=== PATIENT | female | born 1940 | race Caucasian/White ===

== ENCOUNTER 2019-08-24 14:02 | Emergency (ER) | payer MEDICARE, BC, SELFPAY ==
[2019-08-24 14:11] VITALS: BP 128/63; PULSE 91; RESP 18; TEMP 37.4; O2SAT 94; BMI 29.6
--- NOTE | 2019-08-24 14:15 | XR_ITS ---
PROCEDURE: XR CHEST PORTABLE CLINICAL HISTORY: cough/respiratory symptoms COMPARISON: No exams were available for comparison FINDINGS: There is mild cardiomegaly without failure. Patchy density is present in the right upper and right lower lobe suggesting ground-glass infiltrates. Nodular opacity is noted in the left lower lobe and could be due to summation artifact or developing pulmonary nodule. Follow-up suggested when patient can tolerate. There are degenerative changes of the right shoulder IMPRESSION: Patchy ground-glass density in the right upper and right lower lobe which could be seen with viral pneumonia. Indeterminate nodular opacity left lower lobe Dictated by: Chago Granados MD 08/24/2019 15:17 Electronically signed by Chago Granados MD in [place] 08/24/2019 15:17
--- NOTE | 2019-08-24 14:18 | HMH.COUGH ---
Cough Clinic HPI - History of Present Illness Complaint:: cough HPI:: 78 year old female with one day of minimally productive cough and mylagias without fevers. Assoicated nasal congestion, rhinorrhea, watery/itchy eyes. Ears are also itching with popping sensation in ears. Home Medications: Home Medications Medication Instructions Recorded Confirmed Type Azithromycin [Z-Deangelo 250mg Tab] 250 mg PO DIRECTED #6 tab 08/24/19 Rx Fluticasone/Salmeterol [Advair 1 inh IH BID 08/24/19 08/24/19 History 250/50mcg Diskus] Isosorbide Mononitrate [Imdur 60mg 60 mg PO DAILY 08/24/19 08/24/19 History ER tablet] Losartan Potassium 50 mg PO DAILY 08/24/19 08/24/19 History Metoprolol Succinate [Metoprolol 100 mg PO DAILY 08/24/19 08/24/19 History Succinate 100mg Tablet*] Montelukast Sodium [Singulair 10mg 10 mg PO PM 08/24/19 08/24/19 History tablet] Simvastatin 40 mg PO DAILY 08/24/19 08/24/19 History Spironolactone [Spironolactone 25 mg PO DAILY 08/24/19 08/24/19 History 25mg Tablet] raNITIdine HCl [Zantac 150mg] 150 mg PO DAILY 08/24/19 08/24/19 History Allergies/Adverse Reactions: Allergies Allergy/AdvReac Type Severity Reaction Status Date / Time No Known Allergies Allergy Verified 08/24/19 14:24 Cough Clinic Triage - Symptoms Fever History: No Chills: Yes Myalgia: Yes Nasal Drainage: Yes Sore Throat: Yes Productive Cough: Yes Non-productive Cough: No Ear or Sinus Pain: No Joint Pain: Yes Chest Pain: No Rash: No Shortness of Breath: No Nausea or Vomitting: No Headache: Yes Abdominal Pain: No Diarrhea: No - Exposure History Foreign Travel: No Direct Contact with COVID-19 Patient: No - Risk Factors Greater than 60 Years Old: Yes COPD: No Diabetes: Yes Heart Disease: Yes Home Oxygen Use: No Chronic Renal Disease: No Chronic Liver Disease: No Neurologic/Neurodevelopmental/intellectual disability: No Other Chronic Diseases: No If Female, currently : No Current Smoker: No Former Smoker: Yes Cough Clinic History I have reviewed the patient's past medical history: Yes Medical History: Reports:: Asthma ROS Obtained: Yes All systems reviewed & no additional complaints Cough Clinic Exam - General General appearance: alert, in no apparent distress - Head Head exam: atraumatic, normocephalic, normal inspection - Eye Eye exam: Present: normal appearance, PERRL, EOMI - ENT ENT exam: Present: normal exam, normal oropharynx, mucous membranes moist, normal external ear exam, other (clear effusioin behind left ear) - Neck Neck exam: Present: normal inspection, full ROM, trachea midline. Absent: meningismus, lymphadenopathy - Chest Chest inspection: Present: normal inspection, symmetric chest wall rise. Absent: tenderness - Respiratory Respiratory exam: Present: normal lung sounds bilaterally. Absent: respiratory distress - Cardiovascular Cardiovascular exam: Present: regular rate, normal rhythm. Absent: JVD - Extremities Exam Extremities exam: Present: normal inspection, full ROM, normal capillary refill. Absent: calf tenderness - Neurological Exam Neurological exam: Present: alert, oriented X3 - Skin Skin exam: Present: warm, dry, intact, normal color - Lymphatic Lymphatic Findings: no adenopathy Cough Clinic MDM Vital Signs: 08/24/19 14:11 Temperature 99.3 F Temperature Source Oral Pulse Rate [Right Brachial] 91 H Respiratory Rate 18 Blood Pressure [Left Arm] 128/63 Blood Pressure Mean [Left Arm] 84 02 Sat by Pulse Oximetry 94 L Oxygen Delivery Method Room Air - Lab Data Lab Results 08/24/19 14:16: WBC 12.6 H, RBC 3.60 L, Hgb 12.1 L, Hct 35.0 L, MCV 97.1, MCH 33.7 H, MCHC 34.7, RDW 13.0, Plt Count 257, MPV 7.7, Neut % (Auto) 72.8, Lymph % (Auto) 17.2, Douglas % (Auto) 7.4, Eos % (Auto) 1.9, Baso % (Auto) 0.6, Neut # (Auto) 9.2 H, Lymph # (Auto) 2.2, Douglas # (Auto) 0.9, Eos # (Auto) 0.2, Baso # (Auto) 0.1 08/24/19 14:16: Influ
[2019-08-24 14:24] LABS: Hemoglobin 12.1 g/dL (12.2-16.2); Mean Corpuscular HGB Conc 34.7 g/dL (31.8-35.4); Mean Corpuscular Hemoglobin 33.7 pg (27.0-31.2); Mean Corpuscular Volume 97.1 fl (81-99); White Blood Count 12.6 K/mm3 (4.8-10.8)
[2019-08-24 14:25] LABS: Basophils # 0.1 K/mm3 (0-0.2); Basophils % 0.6 % (0.1-2.0); Eosinophils # 0.2 K/mm3 (0.0-0.4); Eosinophils % 1.9 % (0.1-12.0); Lymphocytes # 2.2 K/mm3 (0.7-4.5); Lymphocytes % 17.2 % (10-50); Mean Platelet Volume 7.7 fl (7.4-10.4); Monocytes # 0.9 K/mm3 (0.1-1.0); Monocytes % 7.4 % (1.7-9.3); Neutrophils # 9.2 K/mm3 (1.8-7.8); Neutrophils % 72.8 % (37.0-80.0); Platelet Count 257 K/mm3 (142-424)
[2019-08-24 14:27] LABS: Strep Scrn Group A (Rapid) Negative (Negative)
[2019-08-24 15:25] VITALS: BP 128/63; PULSE 91; RESP 18; TEMP 37.4; O2SAT 94
[2019-08-25 16:35] LABS: Covid-19 Nasal PCR Sendout Lex NOT DETECTED
--- NOTE | 2019-08-25 17:09 | PC.NURSE ---
1700 - notified of negative COVID 19 results.
--- NOTE | 2019-08-25 17:17 | PC.NURSE ---
notified pt of negative COVID 19 results at this time.
== END 2019-08-24 15:27 | disposition home or self-care (01) ==
PROVIDERS: Emergency Provider Family Medicine; PCP Emergency Medicine
DX: J18.9 Pneumonia, unspecified organism (principal); M79.10 Myalgia, unspecified site
CPT/HCPCS: G0463; 36415; 71045; 85025; 87275; 87276; 87430; 99201; 99213; U0003

== ENCOUNTER → 2019-09-04 11:16 | Outpatient (CLI) | payer MEDICARE, BC, SELFPAY ==
--- NOTE | 2019-09-04 11:26 | XR_ITS ---
PROCEDURE: XR CHEST 2V CLINICAL HISTORY: PNEUMONIA Follow-up pneumonia COMPARISON: XR CHEST PORTABLE from 08/24/2019 FINDINGS: Borderline cardiomegaly without failure. COPD. Old granulomatous disease. Previously noted patchy density in the right upper and right lower lobe has improved. Degenerative changes of the shoulders noted and of the lumbar spine IMPRESSION: No acute finding. COPD with improved right-sided pneumonia Dictated by: Chago Granados MD 09/04/2019 12:02 Electronically signed by Chago Granados MD in [place] 09/04/2019 12:02
== END ==
PROVIDERS: PCP Emergency Medicine; Visit Provider Emergency Medicine
DX: J18.9 Pneumonia, unspecified organism (principal)
CPT/HCPCS: 71046